=== PATIENT | male | born 1965 | race Caucasian/White ===

== ENCOUNTER 2016-08-30 19:09 | Emergency (ER) | payer OTHER ==
[2016-08-30 19:59] LABS: BASOPHIL 0.3 % (0-2); EOSINOPHIL 1.2 % (0-5); HCT 42.5 % (42.0-52.0); HGB 14.6 g/dl (13.2-18.0); LYMPHOCYTE 35.8 % (15-48); MCHC 34.4 g/dL (32.0-36.0); MCV 99.1 fL (78.0-100.0); MPV 9.1 fL (6.0-9.5); NEUTROPHIL 54.7 % (41-80); PLT 200 K/uL (150-400); RBC 4.29 M/uL (4.70-6.00); RDW 13.2 % (11.5-14.0); WBC 13.2 K/uL (4.0-10.5)
[2016-08-30 20:08] LABS: INR 0.89 (0.9-1.2); PROTHROMBIN TIME 11.7 SECONDS (11.7-14.0); PTT 25.2 SECONDS (23.2-31.4)
[2016-08-30 20:18] LABS: CKMB 2.53 ng/mL (0.97-4.94); MYOGLOBIN 54 ng/mL (26-65); TROPONIN T < 0.010 ng/mL
[2016-08-30 20:19] LABS: ALBUMIN 4.1 g/dL (3.5-5.0); BILIRUBIN - TOTAL 0.3 mg/dL (0.1-1.0); CREATININE 1.2 mg/dL (0.7-1.2); GLOBULIN (CALCULATION) 2.3 g/dL (2.2-4.2); POTASSIUM 3.8 mmol/L (3.5-5.1); TOTAL PROTEIN 6.4 g/dL (6.4-8.3)
[2016-08-30 21:19] LABS: BILIRUBIN NEGATIVE (NEGATIVE); BLOOD NEGATIVE Ery/uL (NEGATIVE); CLARITY CLEAR (CLEAR); COLOR COLORLESS (YELLOW); GLUCOSE (U) NORMAL (NORMAL); KETONE (U) NEGATIVE (NEGATIVE); LEUKOCYTES NEGATIVE Leu/uL (NEGATIVE); NITRITE NEGATIVE (NEGATIVE); PROTEIN NEGATIVE (NEGATIVE); SPECIFIC GRAVITY <=1.005 (1.001-1.030); UROBILINOGEN 0.2 mg/dL (0.2-1.0); pH 6.5 (5.0-9.0)
[2016-08-30 21:51] LABS: AMPHETAMINES NEGATIVE (NEGATIVE); BARBITURATES NEGATIVE (NEGATIVE); BENZODIAZEPINES NEGATIVE (NEGATIVE); COCAINE NEGATIVE (NEGATIVE); MARIJUANA (THC) NEGATIVE (NEGATIVE); METHADONE NEGATIVE (NEGATIVE); TRICYCLIC ANTIDEPRESSANT NEGATIVE (NEGATIVE)
== END 2016-08-30 23:30 | disposition other institution (70) ==
LOC: FER 19:09
PROVIDERS: Emergency Medicine Emergency Medical Services
DX: R20.2 Paresthesia of skin (principal); E16.2 Hypoglycemia, unspecified; H53.2 Diplopia; F17.210 Nicotine dependence, cigarettes, uncomplicated; Z95.5 Presence of coronary angioplasty implant and graft
CPT/HCPCS: 36415; 70450; 71010; 80053; 80061; 80305; 81003; 82550; 82553; 83874; 84484; 85025; 85610; 85730; 93005; G0480